=== PATIENT | male | born 1930 | race African-American/Black ===

== ENCOUNTER 2017-09-25 20:52 | Observation (INO) | payer OTHER ==
--- NOTE | 2017-09-25 20:55 | PDOC ---
History of Present Illness - General Stated Complaint: CHEST PAIN Time Seen by Provider: 09/25/17 20:54 - History of Present Illness Initial Comments: 09/25/17 21:21 The patient is an 87 year old male with a history of HTN, HLD, ME who presents for evaluation of chest pain from [facility]. The patient reports a history of sharp left sided chest pain beginning 6 days ago. He states that the pain began radiating into his left arm earlier today prompting his presentation to the ED for evaluation. The patient received 3 SL nitro at the [facility] with some mild improvement in his pain and a 4th SL nitro en route to the ED. The patient notes that his current pain feels different from his prior MIs and notes that it is worse with inspiration and palpation. He otherwise denies fevers, chills, cough, SOB, nausea, vomiting, abdominal pain, or changes with urination or bowel movements. Past History - Past Medical History Allergies/Adverse Reactions: Allergies Allergy/AdvReac Type Severity Reaction Status Date / Time Penicillins Allergy Verified 09/25/17 21:12 Home Medications: Ambulatory Orders Amlodipine Besylate 10 mg PO DAILY 09/25/17 Aspirin [ASA -] 81 mg PO DAILY 09/25/17 Cholecalciferol (Vitamin D3) [Vitamin D3] 5,000 unit PO DAILY 09/25/17 Cinnamon Bark [Cinnamon] 500 mg PO DAILY 09/25/17 Clopidogrel Bisulfate [Clopidogrel] 75 mg PO DAILY 09/25/17 Dorzolamide/Timolol/Pf [Cosopt Pf Eye Drops] 1 each OP TID 09/25/17 Latanoprost 0.005% Eye Drops [Xalatan 0.005% Eye Drops -] 1 drop OP HS 09/25/17 Loteprednol Etabonate [Lotemax] 5 gm OP Q2D 09/25/17 Metoprolol Succinate [Toprol Xl] 25 mg PO DAILY 09/25/17 Multivit with Minerals No.55 [Centrum Flavor Burst Adult] 1 each PO DAILY [place]-3 Fatty Acids/Fish Oil [Fish Oil 1,000 mg Capsule] 1 each PO DAILY Phenazopyridine HCl [Pyridium] 200 mg PO BID 09/25/17 Prednisolone 1% Ophthalmic [Pred Forte 1% -] 1 drop OP DAILY 09/25/17 Rosuvastatin Calcium [Crestor] 40 mg PO HS 09/25/17 Valacyclovir HCl [Valtrex -] 500 mg PO DAILY 09/25/17 Vit B12/Intrinsic Fact/Folate [Intrinsi M22-[id number] Tablet] 1 each PO DAILY 09/25 Review of Systems - Review of Systems Comments:: 09/25/17 21:24 Constitutional: No fevers, chills, fatigue, malaise HEENT: No Rhinorrhea, nasal congestion, visual changes Cardiovascular: Chest pain. No syncope, palpitations, lightheadedness Respiratory: No Cough, Hemoptysis, Gastrointestinal: No Abdominal pain, Nausea, Vomiting, Constipation, Diarrhea, Melena Genitourinary: No Dysuria, Frequency, Urgency, Hesitancy, Hematuria, Flank pain Musculoskeletal: No Myalgia, arthralgia Skin: No rashes, itching, bruising, pallor Neurologic: No Headache, Dizziness, Numbness, Weakness, or Tingling Psychiatric: No Hallucinations. No SI or HI *Physical Exam - Physical Exam Comments: 09/25/17 21:25 General Appearance: Nourished. No Apparent Distress HEENT: EOMI, EVA. No Pharyngeal Erythema, Tonsillar Exudate, Tonsillar Erythema Neck: No Cervical Lymphadenopathy Respiratory/Chest: Lungs Clear, Normal Breath Sounds. Reproducible tenderness to palpation along the left lateral chest wall. No Crackles, Rales, Rhonchi, Wheezing Cardiovascular: Regular Rhythm, Regular Rate. 2/6 Systolic murmur noted on exam. No Gallops, Rubs Gastrointestinal/Abdominal: Normal Bowel Sounds, Soft. No Guarding, Rebound, Tenderness Musculoskeletal: No CVA Tenderness Extremity: 2+ pitting edema in the lower extremities bilaterally. Normal Capillary Refill Integumentary: Normal Color, Dry, Warm Neurologic: Fully Oriented, Alert, Normal Mood/Affect, Normal Response, Heart Score/ECG Review #1 ECG reviewed & interpreted by me at: 23:17 (Right bundle branch block with Left anterior fascicular block) General ECG Interpretation: Sinus Rhythm, Normal Rate, No acute ischemic changes ED Treatment Course - LABORATORY CBC & Chemistry Diagram: 09/25/17 22:13 09/25/17 22:13 Medical Decision Making - Medical Decision Making 09/25/17 21:26 The patient is an 87 year old male with a history of HTN, HLD, ME who presents for evaluation of chest pain from [facility]. Differential includes but is not limited to: ACS, Pneumonia, musculoskeletal, infectious, metabolic derangement. Given the patient's cardiac history and physical exam, we will obtain a cbc, cmp, bnp, troponin, ekg, and chest plain film to evaluate further for possible etiologies of the patient's pain. We will continue to monitor and reassess in the meantime. 09/25/17 23:12 CBC demonstrates a pancytopenia. CMP, bnp, troponin are unremarkable. The patient will require admission for further management and monitoring. We discussed the case with the hospitalist team who accepted the patient for admission. *DC/Admit/Observation/Transfer Diagnosis at time of Disposition: Pancytopenia Chest pain Qualifiers: Chest pain type: unspecified Qualified Code(s): R07.9 - Chest pain, unspecified - Discharge Dispostion Condition at time of disposition: Stable Admit: Yes - Referrals - Patient Instructions - Post Discharge Activity
[2017-09-25 21:14] VITALS: BMI 30.4
[2017-09-25 22:38] LABS: BASO % 0.6 % (0-2.0); EOS % 2.7 % (0-4.5); HEMATOCRIT 28.9 % (35.4-49); HEMOGLOBIN 9.6 GM/dL (11.7-16.9); MCH 31.9 pg (25.7-33.7); MCHC 33.1 g/dl (32.0-35.9); MEAN CELL VOLUME 96.4 fl (80-96); NEUT % 55.7 % (42.8-82.8); RBC 2.99 M/mm3 (4.00-5.60); RDW 15.2 % (11.9-15.9)
[2017-09-25 22:50] LABS: ALBUMIN 3.4 g/dl (3.4-5.0); ANION GAP 6 (8-16); BILIRUBIN,TOTAL 0.3 mg/dL (0.2-1.0); BLOOD UREA NITROGEN 19 mg/dL (7-18); CALCIUM 7.9 mg/dL (8.5-10.1); CHLORIDE 106 mmol/L (98-107); CO2 27 mmol/L (21-32); CREATININE 1.2 mg/dL (0.7-1.3); GLUCOSE,RANDOM 144 mg/dL (74-106); PLATELET COUNT 33 K/MM3 (134-434); POTASSIUM 3.8 mmol/L (3.5-5.1); SGOT/AST 11 U/L (15-37); SGPT/ALT 13 U/L (12-78); SODIUM 139 mmol/L (136-145); TOT PROT 6.4 g/dl (6.4-8.2)
[2017-09-25 22:52] LABS: ALK PHOS 91 U/L (45-117)
[2017-09-25] MEDS ORDERED: MORPHINE SULFATE 10 MG/1 ML *VIAL IVPUSH PRN (23:13)
[2017-09-25 23:14] LABS: WHITE BLOOD COUNT 3.2 K/mm3 (4.0-10.0)
--- NOTE | 2017-09-25 23:24 | HP ---
CHIEF COMPLAINT: Chest pain. PCP: Dr. Macrina Pineda HISTORY OF PRESENT ILLNESS: 87 yo M with significant PMHx of HTN, HLD, and CAD (s/p ME x2) presents with 6 day history of chest pain from [facility]. He describes constant sharp left sided chest pain that radiates down left arm. Pain is worse with deep inspiration and with palpation. He endorses diaphoresis one night prior. Pain not associated with activity or nausea. He received SL nitro x3 at [facility] and one in ambulance with minimal pain relief. He states that pain is not similar to prior ME. Last ME was 5 yrs ago and he underwent cardiac cath but not stents. Unsure of last echo or stress test but is following by inspector material disposition. Denies BUSTOS, SOB, abdominal pain, recent illness fever or chills. ER course was notable for: (1)Troponin I (-) x1 (2)CXR shows no acute pathology (3) Recent Travel: Denies PAST MEDICAL HISTORY:HTN, HLD, and CAD PAST SURGICAL HISTORY: right knee replacement, tonsillectomy, removal of scalp mass. Social History: Smoking: former smoker quit in Alcohol: Denies Drugs: Denies Family History: Allergies Penicillins Allergy (Verified 09/25/17 21:12) HOME MEDICATIONS: Home Medications Medication Instructions Recorded Amlodipine Besylate 10 mg PO DAILY 09/25/17 Aspirin [ASA -] 81 mg PO DAILY 09/25/17 Cholecalciferol (Vitamin D3) 5,000 unit PO DAILY 09/25/17 [Vitamin D3] Cinnamon Bark [Cinnamon] 500 mg PO DAILY 09/25/17 Clopidogrel Bisulfate [Clopidogrel] 75 mg PO DAILY 09/25/17 Dorzolamide/Timolol/Pf [Cosopt Pf 1 each OP TID 09/25/17 Eye Drops] Latanoprost 0.005% Eye Drops 1 drop OP HS 09/25/17 [Xalatan 0.005% Eye Drops -] Loteprednol Etabonate [Lotemax] 5 gm OP Q2D 09/25/17 Metoprolol Succinate [Toprol Xl] 25 mg PO DAILY 09/25/17 Multivit with Minerals No.55 1 each PO DAILY 09/25/17 [Centrum Flavor Burst Adult] [place]-3 Fatty Acids/Fish Oil [Fish 1 each PO DAILY 09/25/17 Oil 1,000 mg Capsule] Phenazopyridine HCl [Pyridium] 200 mg PO BID 09/25/17 Prednisolone 1% Ophthalmic [Pred 1 drop OP DAILY 09/25/17 Forte 1% -] Rosuvastatin Calcium [Crestor] 40 mg PO HS 09/25/17 Valacyclovir HCl [Valtrex -] 500 mg PO DAILY 09/25/17 Vit B12/Intrinsic Fact/Folate 1 each PO DAILY 09/25/17 [Intrinsi W68-Mhuyef Tablet] REVIEW OF SYSTEMS CONSTITUTIONAL: Absent: fever, chills, diaphoresis, generalized weakness, malaise, loss of appetite, weight change HEENT: Absent: rhinorrhea, nasal congestion, throat pain, throat swelling, difficulty swallowing, mouth swelling, ear pain, eye pain, visual changes CARDIOVASCULAR: + chest pain Absent: , syncope, palpitations, irregular heart rate, lightheadedness, peripheral edema RESPIRATORY: Absent: cough, shortness of breath, dyspnea with exertion, orthopnea, wheezing, stridor, hemoptysis GASTROINTESTINAL: Absent: abdominal pain, abdominal distension, nausea, vomiting, diarrhea, constipation, melena, hematochezia GENITOURINARY: Absent: dysuria, frequency, urgency, hesitancy, hematuria, flank pain, genital pain MUSCULOSKELETAL: Absent: myalgia, arthralgia, joint swelling, back pain, neck pain SKIN: Absent: rash, itching, pallor HEMATOLOGIC/IMMUNOLOGIC: Absent: easy bleeding, easy bruising, lymphadenopathy, frequent infections ENDOCRINE: Absent: unexplained weight gain, unexplained weight loss, heat intolerance, cold intolerance NEUROLOGIC: Absent: headache, focal weakness or paresthesias, dizziness, unsteady gait, seizure, mental status changes, bladder or bowel incontinence PSYCHIATRIC: Absent: anxiety, depression, suicidal or homicidal ideation, hallucinations. PHYSICAL EXAMINATION Vital Signs - 24 hr 09/25/17 21:12 Temperature 97.6 F Pulse Rate 67 Respiratory 14 Rate Blood Pressure 105/54 GENERAL: Awake and alert, NAD HEAD:NC/AT EYES:legally blind. Pupils dilated and unreactive. EARS, NOSE, THROAT:dry mucous membranes. NECK: supple, No jvd LUNGS: CTAB, No wheezing or rales. HEART: RRR, S1S2 NL, 2/6 YOVANI ABDOMEN: Soft, NT/ND, NL BS, no guarding, no rebound, no masses. MUSCULOSKELETAL: tenderness to palpation of left chest wall mid axillary line. UPPER EXTREMITIES: 2+ pulses, warm, well-perfused. No cyanosis. No clubbing. No peripheral edema. LOWER EXTREMITIES: 2+ pulses, warm, well-perfused. No calf tenderness. 1 + pitting edema up to knees bilaterally. NEUROLOGICAL: Normal speech. PSYCHIATRIC: Cooperative. Appropriate mood and affect. SKIN: Warm, dry, normal turgor, no rashes or lesions noted, normal capillary refill. Laboratory Results - last 24 hr 09/25/17 09/25/17 09/25/17 22:13 22:13 22:13 WBC 3.2 L RBC 2.99 L Hgb 9.6 L Hct 28.9 L MCV 96.4 H MCH 31.9 MCHC 33.1 RDW 15.2 Plt Count 33 L* MPV 11.0 Neutrophils % 55.7 Lymphocytes % 35.0 Monocytes % 6.0 Eosinophils % 2.7 Basophils % 0.6 Sodium 139 Potassium 3.8 Chloride 106 Carbon Dioxide 27 Anion Gap 6 L BUN 19 H Creatinine 1.2 Creat Clearance w eGFR 57.27 Random Glucose 144 H Calcium 7.9 L Total Bilirubin 0.3 AST 11 L ALT 13 Alkaline Phosphatase 91 Creatine Kinase 54 Troponin I < 0.02 B-Natriuretic Peptide 289.19 Total Protein 6.4 Albumin 3.4 ASSESSMENT/PLAN: 87 yo M with significant PMHx of CAD, HTN, HLD placed on telemetry observation to r/o ACS. Problem List - Problem (1) Chest pain Assessment/Plan: R/O ACS, however atypical presentation most likely MS * Place on observation. * Telemetry * Trend trops Q6H * EKG in AM * Cardio Consult Dr. Yoon. * lipid panel * Morphine 1 mg Q4H for pain 6-10 * SL NITRO PRN * CXR pending. * ECHO to assess for WMA. (2) Pancytopenia Assessment/Plan: unclear etiology. * Lab reports clots. * repeat CBC WNL * Will restart ASA and plavix. (3) DVT prophylaxis Assessment/Plan: SCD's bilaterally Visit type - Emergency Visit Emergency Visit: Yes ED Registration Date: 09/25/17 Care time: The patient presented to the Emergency Department on the above date and was hospitalized for further evaluation of their emergent condition. - New Patient This patient is new to me today: Yes Date on this admission: 09/26/17 - Critical Care Critical Care patient: No Hospitalist Screening - Colonoscopy Questionnaire Colonoscopy Questionnaire: Colonoscopy Questionnaire - Patient: 50 - 75 years old and never had a screening colonoscopy: No History of colon or rectal polyps, or CA: No History of IBD, Crohn's disease or UC: No History of abdominal radiation therapy as a child: No - Relative: 1 with colon or rectal CA, or polyps at age 60 or younger: No Colon or rectal CA diagnosed at age 45 or younger: No Multiple relatives with colon or rectal CA: No - Outcome: Screening Result: Negative Screen
--- NOTE | 2017-09-26 00:33 | PDOC ---
Attending Attestation - Resident Resident Name: HuongXiang - ED Attending Attestation I have performed the following: I have examined & evaluated the patient, The case was reviewed & discussed with the resident, I agree w/resident's findings & plan, Exceptions are as noted - HPI HPI: 09/26/17 00:32 87 yo male BIBA from [facility] for chest pain. 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
--- NOTE | 2017-09-26 00:52 | PN ---
Teaching Attending Note Name of Resident: Franco Houser ATTENDING PHYSICIAN STATEMENT I saw and evaluated the patient. I reviewed the resident's note and discussed the case with the resident. I agree with the resident's findings and plan as documented. SUBJECTIVE: 87 F with pmhx. of HTN, HLD, Past RI 5 years ago, in which stents could not be placed, who presents with chest pain earlier today. States Chest pain started while he was in therapy and is pain on left side of chest. States it causes him pain to take deep breath. No diaphoresis, no fevers or chills. No chest pressure. States his left chest feels sore. No N, V,D. 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 Quit Smoking in 1960s. Fam Hx: Father passed RI OBJECTIVE: Physical: VS: Vital Signs Period Temp Pulse Resp BP Sys/Yeung Pulse Ox Last 24 Hr 97.6 F 67 14 105/54 GEN: NAD, Resting in bed, AA0x3 HEENT: NCAT, PERRL, Throat without erythema or exudates CARD: RRR S1, S2 RESP: CTAB ABD: BSx4, NTD to palpation EXT: - C/C/E CBCD WBC 3.2 K/mm3 (4.0-10.0) L 09/25/17 22:13 RBC 2.99 M/mm3 (4.00-5.60) L 09/25/17 22:13 Hgb 9.6 GM/dL (11.7-16.9) L 09/25/17 22:13 Hct 28.9 % (35.4-49) L 09/25/17 22:13 MCV 96.4 fl (80-96) H 09/25/17 22:13 MCHC 33.1 g/dl (32.0-35.9) 09/25/17 22:13 RDW 15.2 % (11.9-15.9) 09/25/17 22:13 Plt Count 33 K/MM3 (134-434) L* 09/25/17 22:13 MPV 11.0 fl (7.5-11.1) 09/25/17 22:13 CMP Sodium 139 mmol/L (136-145) 09/25/17 22:13 Potassium 3.8 mmol/L (3.5-5.1) 09/25/17 22:13 Chloride 106 mmol/L (98-107) 09/25/17 22:13 Carbon Dioxide 27 mmol/L (21-32) 09/25/17 22:13 Anion Gap 6 (8-16) L 09/25/17 22:13 BUN 19 mg/dL (7-18) H 09/25/17 22:13 Creatinine 1.2 mg/dL (0.7-1.3) 09/25/17 22:13 Creat Clearance w eGFR 57.27 (>60) 09/25/17 22:13 Random Glucose 144 mg/dL (74-106) H 09/25/17 22:13 Calcium 7.9 mg/dL (8.5-10.1) L 09/25/17 22:13 Total Bilirubin 0.3 mg/dL (0.2-1.0) 09/25/17 22:13 AST 11 U/L (15-37) L 09/25/17 22:13 ALT 13 U/L (12-78) 09/25/17 22:13 Alkaline Phosphatase 91 U/L (45-117) 09/25/17 22:13 Total Protein 6.4 g/dl (6.4-8.2) 09/25/17 22:13 Albumin 3.4 g/dl (3.4-5.0) 09/25/17 22:13 CARDIAC ENZYMES Creatine Kinase 54 IU/L (39-308) 09/25/17 22:13 Troponin I < 0.02 ng/ml (0.00-0.05) 09/25/17 22:13 EKG: RBBB, Bifasicular block QtC 490 PVC CXR: PENDING Ambulatory Orders Amlodipine Besylate 10 mg PO DAILY 09/25/17 Aspirin [ASA -] 81 mg PO DAILY 09/25/17 Cholecalciferol (Vitamin D3) [Vitamin D3] 5,000 unit PO DAILY 09/25/17 Cinnamon Bark [Cinnamon] 500 mg PO DAILY 09/25/17 Clopidogrel Bisulfate [Clopidogrel] 75 mg PO DAILY 09/25/17 Dorzolamide/Timolol/Pf [Cosopt Pf Eye Drops] 1 each OP TID 09/25/17 Latanoprost 0.005% Eye Drops [Xalatan 0.005% Eye Drops -] 1 drop OP HS 09/25/17 Loteprednol Etabonate [Lotemax] 5 gm OP Q2D 09/25/17 Metoprolol Succinate [Toprol Xl] 25 mg PO DAILY 09/25/17 Multivit with Minerals No.55 [Centrum Flavor Burst Adult] 1 each PO DAILY [place]-3 Fatty Acids/Fish Oil [Fish Oil 1,000 mg Capsule] 1 each PO DAILY Phenazopyridine HCl [Pyridium] 200 mg PO BID 09/25/17 Prednisolone 1% Ophthalmic [Pred Forte 1% -] 1 drop OP DAILY 09/25/17 Rosuvastatin Calcium [Crestor] 40 mg PO HS 09/25/17 Valacyclovir HCl [Valtrex -] 500 mg PO DAILY 09/25/17 Vit B12/Intrinsic Fact/Folate [Intrinsi Y85-Hacmwq Tablet] 1 each PO DAILY 09/25 ASSESSMENT AND PLAN: 87 F with pmhx. of HTN, HLD, Past RI 5 years ago, in which stents could not be placed, who presents with chest pain 1.) Chest Pain - Atypical - HEART 6 - Trend Trop/Ekg - ECHO - Most likley musculoskeltal - NEEDS REPEAT CBC - Low plts - Morphine prn pain - 02 - BP borderline would hold BB - FU CXR 2.) Pancytopenia - STAT CBC REPEAT - HEME consult if counts true - Hold ASA/Plavix 3.) LISA - Gentle IVF 4.) HLD - Check lipid panel 5.) Dvt Ppx - SCDS Place in OBs-Tele
[2017-09-26 03:55] LABS: BASO % 0.7 % (0-2.0); EOS % 3.4 % (0-4.5); HEMATOCRIT 27.6 % (35.4-49); HEMOGLOBIN 9.3 GM/dL (11.7-16.9); LYMPH % 28.6 % (8-40); MCH 32.2 pg (25.7-33.7); MCHC 33.5 g/dl (32.0-35.9); MEAN PLT VOLUME 9.5 fl (7.5-11.1); MONO % 8.8 % (3.8-10.2); NEUT % 58.5 % (42.8-82.8); PLATELET COUNT 162 K/MM3 (134-434); RBC 2.88 M/mm3 (4.00-5.60); RDW 15.1 % (11.9-15.9)
[2017-09-26 07:00] LABS: URINE APPEARANCE SLCLOUDY; URINE BILIRUBIN NEGATIVE (NEGATIVE); URINE BLOOD 2+ (NEGATIVE); URINE COLOR AMBER; URINE GLUCOSE (UA) NEGATIVE (NEGATIVE); URINE KETONE NEGATIVE (NEGATIVE); URINE NITRITE POSITIVE (NEGATIVE); URINE UROBILINOGEN 4.0 E.U/dl mg/dL (0.2-1.0)
[2017-09-26 07:09] LABS: URINE LEUK ESTERASE 2+ (NEGATIVE); URINE PROTEIN 2+ (NEGATIVE)
[2017-09-26 07:11] LABS: EPI CELLS RARE /HPF (FEW); URINE BACTERIA MANY /hpf (NONE SEEN); URINE MUCUS RARE
[2017-09-26 07:53] LABS: BASO % 0.7 % (0-2.0); EOS % 2.6 % (0-4.5); HEMATOCRIT 28.2 % (35.4-49); HEMOGLOBIN 9.6 GM/dL (11.7-16.9); MCH 32.6 pg (25.7-33.7); MEAN PLT VOLUME 9.1 fl (7.5-11.1); MONO % 8.6 % (3.8-10.2); NEUT % 62.1 % (42.8-82.8); PLATELET COUNT 160 K/MM3 (134-434); RBC 2.93 M/mm3 (4.00-5.60); RDW 15.4 % (11.9-15.9); WHITE BLOOD COUNT 4.5 K/mm3 (4.0-10.0)
[2017-09-26 08:21] LABS: ALBUMIN 3.4 g/dl (3.4-5.0); ANION GAP 12 (8-16); BLOOD UREA NITROGEN 19 mg/dL (7-18); CALCIUM 8.5 mg/dL (8.5-10.1); CHLORIDE 106 mmol/L (98-107); CO2 23 mmol/L (21-32); CREATININE 1.1 mg/dL (0.7-1.3); GLUCOSE,RANDOM 98 mg/dL (74-106); PHOSPHOROUS 3.3 mg/dL (2.5-4.9); SGPT/ALT 12 U/L (12-78); SODIUM 141 mmol/L (136-145)
[2017-09-26 08:23] LABS: ALK PHOS 76 U/L (45-117); BILIRUBIN,TOTAL 0.6 mg/dL (0.2-1.0); TOT PROT 6.4 g/dl (6.4-8.2)
[2017-09-26 08:26] LABS: MAGNESIUM 2.2 mg/dL (1.8-2.4); POTASSIUM 4.1 mmol/L (3.5-5.1); SGOT/AST 17 U/L (15-37)
[2017-09-26] MEDS ORDERED: LOTEPREDNOL ETABONATE 5 GM OP SCH (10:00)
[2017-09-26] MEDS: amLODIPine BESYLATE 10 MG TABLET (FP) PO SCH (10:19)
[2017-09-26] MEDS: ASPIRIN 81 MG CHEWABLE TABLETS PO SCH (10:19)
[2017-09-26] MEDS: CLOPIDOGREL BISULFATE 75 MG TABLET (FP) PO SCH (10:19)
[2017-09-26] MEDS: prednisoLONE ACETATE 1% OPHTH SUSP 5 ML BOTTLE OU SCH (10:20)
[2017-09-26] MEDS: metoPROLOL SUCCINATE 25 MG TAB.SR.24H (FP) PO SCH (10:20)
--- NOTE | 2017-09-26 10:47 | PN ---
Progress Note, Physician Chief Complaint: c/o chest pain with movement cough+ events noted - Current Medication List Current Medications: Active Medications Amlodipine Besylate (Norvasc -) 10 mg PO DAILY [facility] Last Admin: 09/26/17 10:19 Dose: 10 mg Aspirin (Asa -) 81 mg PO DAILY [facility] Last Admin: 09/26/17 10:19 Dose: 81 mg Clopidogrel Bisulfate (Plavix -) 75 mg PO DAILY [facility] Last Admin: 09/26/17 10:19 Dose: 75 mg Latanoprost (Xalatan 0.005% Eye Drops -) 1 drop OU [facility] Metoprolol Succinate (Toprol Xl -) 25 mg PO DAILY [facility] Last Admin: 09/26/17 10:20 Dose: 25 mg Morphine Sulfate (Morphine Injection -) 1 mg IVPUSH Q4H PRN PRN Reason: PAIN LEVEL 6-10 Non-Formulary Medication (Loteprednol Etabonate [Lotemax]) 5 gm OP Q2D [facility] Prednisolone Acetate (Pred Forte 1% -) 1 drop OU DAILY [facility] Last Admin: 09/26/17 10:20 Dose: 1 drop Rosuvastatin Calcium (Crestor -) 40 mg PO [facility] - Objective Vital Signs: Vital Signs Temperature 98.0 F 09/26/17 08:59 Pulse Rate 59 L 09/26/17 08:59 Respiratory Rate 16 09/26/17 08:59 Blood Pressure 110/69 09/26/17 08:59 O2 Sat by Pulse Oximetry (%) 95 09/26/17 08:59 Constitutional: Yes: No Distress Cardiovascular: Yes: Pulse Irregular Respiratory: Yes: Diminished Gastrointestinal: Yes: Normal Bowel Sounds, Soft. No: Tenderness Edema: No Labs: CBC, BMP 09/26/17 07:37 09/26/17 07:37 Problem List - Problems (1) Chest pain Code(s): R07.9 - CHEST PAIN, UNSPECIFIED Qualifiers: Chest pain type: chest pain on breathing Qualified Code(s): R07.1 - Chest pain on breathing; R07.81 - Pleurodynia (2) CKD (chronic kidney disease) Code(s): N18.9 - CHRONIC KIDNEY DISEASE, UNSPECIFIED (3) Afib Code(s): I48.91 - UNSPECIFIED ATRIAL FIBRILLATION (4) HTN (hypertension) Code(s): I10 - ESSENTIAL (PRIMARY) HYPERTENSION Assessment/Plan PLAN Check cardiac enzymes Cardiology eval ASA and Plavix to continue CT chest start antibiotics urine antigens Telemetry rate control
--- NOTE | 2017-09-26 15:51 | CON.CARD ---
Consult Consult Specialty:: cardio - History of Present Illness Chief Complaint: cp History of Present Illness: 87 yo male here with CP. pt has prior CAD history. sees dr diana eisenberg (last saw him 2 mo ago--all stable then) home med regimen: rosuva 40mg, aspirin 81, plavix, metopr 25mg, amlodipine 10, fish oils 1000mg qd states he is having L axillary/lateral chest pain, lower chest near lower rib margin, constant all day today. has not resolved. worse with breathing deep or coughing, ALSO WORSE WITH MOTION OF TORSO. CHILLS WITH SOAKING SWEATS YESTERDAY. cough began yesterday, with phlegm (blind--? color) no sore throat, rhinitis admits to sob, including orthopnea--? how long ("i've been having that for some time"). legs swelling, ? unchanged he says denies h/o pericarditis, chf trop neg x 2 here. PMH (per [place] list): afib CKD angina GERD RA - Alcohol/Substance Use Hx Alcohol Use: No - Smoking History Smoking history: Never smoked Have you smoked in the past 12 months: No Home Medications - Allergies Allergies/Adverse Reactions: Allergies Allergy/AdvReac Type Severity Reaction Status Date / Time Penicillins Allergy Verified 09/25/17 21:12 - Home Medications Home Medications: Ambulatory Orders Amlodipine Besylate 10 mg PO DAILY 09/25/17 Aspirin [ASA -] 81 mg PO DAILY 09/25/17 Cholecalciferol (Vitamin D3) [Vitamin D3] 5,000 unit PO DAILY 09/25/17 Cinnamon Bark [Cinnamon] 500 mg PO DAILY 09/25/17 Clopidogrel Bisulfate [Clopidogrel] 75 mg PO DAILY 09/25/17 Dorzolamide/Timolol/Pf [Cosopt Pf Eye Drops] 1 each OU TID 09/25/17 Latanoprost 0.005% Eye Drops [Xalatan 0.005% Eye Drops -] 1 drop OU HS 09/25/17 Loteprednol Etabonate [Lotemax] 5 gm OP Q2D 09/25/17 Metoprolol Succinate [Toprol Xl] 25 mg PO DAILY 09/25/17 Multivit with Minerals No.55 [Centrum Flavor Burst Adult] 1 each PO DAILY [place]-3 Fatty Acids/Fish Oil [Fish Oil 1,000 mg Capsule] 1 each PO DAILY Phenazopyridine HCl [Pyridium] 200 mg PO BID 09/25/17 Prednisolone 1% Ophthalmic [Pred Forte 1% -] 1 drop OS DAILY 09/25/17 Rosuvastatin Calcium [Crestor] 40 mg PO HS 09/25/17 Valacyclovir HCl [Valtrex -] 500 mg PO DAILY 09/25/17 Brinzolamide [Azopt] 1 drop OU TID 09/26/17 Cyanocobalamin [Vitamin B12 -] 1,000 mcg PO DAILY 09/26/17 Ketorolac Tromethamine [Acular] 1 drop OU BID 09/26/17 Review of Systems - Review of Systems Constitutional: reports: Chills. denies: Fever Eyes: denies: Eye Pain HENT: denies: Nasal Congestion Neck: denies: Stiffness Cardiovascular: denies: Palpitations Respiratory: denies: Orthopnea, PND Gastrointestinal: denies: Diarrhea, Rectal Bleeding Genitourinary: denies: Burning, Hematuria Musculoskeletal: denies: Muscle Pain Integumentary: denies: Rash Neurological: denies: Numbness, Seizure, Syncope Endocrine: denies: Excessive Sweating Hematology/Lymphatic: denies: Excessive Bleeding Vital Signs: Vital Signs Temperature 98 F 09/26/17 14:30 Pulse Rate 105 H 09/26/17 14:30 Respiratory Rate 20 09/26/17 14:30 Blood Pressure 126/68 09/26/17 14:30 O2 Sat by Pulse Oximetry (%) 98 09/26/17 12:11 Constitutional: Yes: Well Nourished, No Distress Eyes: No: Sclera Icterus HENT: No: Nasal Congestion Neck: No: Decreased ROM Respiratory: Yes: CTA Bilaterally. No: Accessory Muscle Use, Rales, Wheezes Gastrointestinal: Yes: Normal Bowel Sounds. No: Distention, Hepatomegaly, Palpable Mass, Tenderness Cardiovascular: Yes: Regular Rate and Rhythm JVD: No Carotid Bruit: No PMI: Non-Displaced Heart Sounds: Yes: S1, S2. No: Gallop, Rub Murmur: No: Systolic Murmur, Diastolic Murmur Musculoskeletal: Yes: Other (No kyphosis) Extremities: No: Cool, Cyanosis Edema: Yes (1+ ankles) Peripheral Pulses: 2+ Left Carotid, 2+ Right Carotid, 2+ Left Doralis Pedis, 2+ Right Dorsalis Pedis Integumentary: No: Jaundice Neurological: Yes: Alert, Oriented (x3) Psychiatric: No: Agitated - Other Data Labs, Other Data: CBC, BMP 09/26/17 07:37 09/26/17 07:37 Troponin, BNP 09/25/17 09/25/17 09/26/17 22:13 22:13 03:43 Troponin I < 0.02 0.02 B-Natriuretic Peptide 289.19 Troponin, BNP 09/25/17 09/25/17 09/26/17 22:13 22:13 03:43 Troponin I < 0.02 0.02 B-Natriuretic Peptide 289.19 Laboratory Tests 09/25/17 09/25/17 09/26/17 22:13 22:13 03:43 WBC Hgb Plt Count Sodium Potassium Carbon Dioxide BUN Creatinine AST ALT Troponin I < 0.02 0.02 B-Natriuretic Peptide 289.19 09/26/17 09/26/17 07:37 07:37 WBC 4.5 Hgb 9.6 L Plt Count 160 Sodium 141 Potassium 4.1 Carbon Dioxide 23 BUN 19 H Creatinine 1.1 AST 17 D ALT 12 Troponin I B-Natriuretic Peptide Assessment/Plan ECG 09/25 (21:47): NSR, IVCD (probably RBBB), LAFB, ? LVH. no path Q's. repol abnormalities V1-3 assctd with RBBB morphology of QRS. PVC. no old to compare. CXR: clear lungs/pleura, ? incr markings retrocardiac region chest pain, cough/chills, sob: -ECG abnormal, but without acute ischemic findings (no old) -trop neg x 2 -NOT CONCERNING FOR ACS, sx's atypical with strong mskel and pleuritic components--suspect sec to bronchitis/PNA, ? pleurisy component. -no rubs heard. -trial ibuprofren 600mg x 1 now--assess sx response -echo pending (? done earlier--report pending)--f/u effusion -at the moment, no signs of pericarditis -? abx, ? CT chest for retrocardiac infiltrate assessment--defer to pmd h/o CAD: -cont prior tx plan (home meds: aspirin, plavix, metoprolol, crestor (or equivalent statin) -f/u with outpt cardio h/o afib: -no details, dx listed in [place] sheets -not on AC--? assembling inspector is treating with asa/plavix instead. -f/u with cardio ([facility]) as outpt, as doing HTN: -bp controlled -cont home meds (amlodipine, metopr) LE edema: -? venous insy, ? amlodipine exacerbating -no other signs chf at present (examined sitting in WC in bathroom), BNP 200, CXR not congested -f/u echo anemia: -no baseline available -serial labs stable here -per pmd
[2017-09-26] MEDS ORDERED: IBUPROFEN 600 MG TABLET (FP) PO ONE (18:00)
[2017-09-26] MEDS ORDERED: PT OWN MED DRAWER 7, Y5N ONE (21:26)
[2017-09-26] MEDS ORDERED: LATANOPROST 0.005% OPHTH SOLN 2.5ML BOTTLE OU SCH (22:00)
[2017-09-26] MEDS ORDERED: ROSUVASTATIN CA 20 MG TABLET (FP) PO SCH (22:00)
--- NOTE | 2017-09-27 01:08 | EKG ---
Test Reason : Blood Pressure : / mmHG Vent. Rate : 070 BPM Atrial Rate : 070 BPM P-R Int : 208 ms QRS Dur : 174 ms QT Int : 454 ms P-R-T Axes : 013 -63 069 degrees QTc Int : 490 ms SINUS RHYTHM WITH OCCASIONAL PREMATURE VENTRICULAR COMPLEXES WITH 1ST DEGREE A-V BLOCK RIGHT BUNDLE BRANCH BLOCK LEFT ANTERIOR FASCICULAR BLOCK TRIFASCICULAR BLOCK MODERATE VOLTAGE CRITERIA FOR LVH, MAY BE NORMAL VARIANT CANNOT RULE OUT SEPTAL INFARCT , AGE UNDETERMINED ABNORMAL ECG NO PREVIOUS ECGS AVAILABLE Confirmed by MAGALIE CALVERT, TAB ([id number]) on 09/27/2017 1:07:37 AM Referred By: Confirmed By:TAB MEJIAS MD
[2017-09-27 06:32] VITALS: TEMP 98.1
[2017-09-27 08:56] LABS: CHOLESTEROL 90 mg/dL (50-200); TRIGLYCERIDES 76 mg/dL (35-160)
[2017-09-27] MEDS: ASPIRIN 81 MG CHEWABLE TABLETS PO SCH (09:05)
[2017-09-27] MEDS: amLODIPine BESYLATE 10 MG TABLET (FP) PO SCH (09:05)
[2017-09-27] MEDS: metoPROLOL SUCCINATE 25 MG TAB.SR.24H (FP) PO SCH (09:06)
[2017-09-27] MEDS: CLOPIDOGREL BISULFATE 75 MG TABLET (FP) PO SCH (09:06)
[2017-09-27] MEDS: prednisoLONE ACETATE 1% OPHTH SUSP 5 ML BOTTLE OU SCH (09:58)
--- NOTE | 2017-09-27 11:14 | PN ---
Progress Note, Physician Chief Complaint: see dc summary - Current Medication List Current Medications: Active Medications Amlodipine Besylate (Norvasc -) 10 mg PO DAILY [facility] Last Admin: 09/27/17 09:05 Dose: 10 mg Aspirin (Asa -) 81 mg PO DAILY [facility] Last Admin: 09/27/17 09:05 Dose: 81 mg Clopidogrel Bisulfate (Plavix -) 75 mg PO DAILY [facility] Last Admin: 09/27/17 09:06 Dose: 75 mg Levofloxacin (Levaquin 500 Mg Premixed Ivpb -) 500 mg in 100 mls @ 100 mls/hr IVPB DAILY [facility] Last Admin: 09/27/17 09:07 Dose: 100 mls/hr Latanoprost (Xalatan 0.005% Eye Drops -) 1 drop OU HS [facility] Last Admin: 09/26/17 21:38 Dose: 1 drop Metoprolol Succinate (Toprol Xl -) 25 mg PO DAILY [facility] Last Admin: 09/27/17 09:06 Dose: 25 mg Morphine Sulfate (Morphine Injection -) 1 mg IVPUSH Q4H PRN PRN Reason: PAIN LEVEL 6-10 Non-Formulary Medication (Loteprednol Etabonate [Lotemax]) 5 gm OP Q2D [facility] Prednisolone Acetate (Pred Forte 1% -) 1 drop OU DAILY [facility] Last Admin: 09/27/17 09:58 Dose: 1 drop Rosuvastatin Calcium (Crestor -) 40 mg PO HS [facility] Last Admin: 09/26/17 21:37 Dose: 40 mg - Objective Vital Signs: Vital Signs Temperature 98.1 F 09/27/17 05:00 Pulse Rate 75 09/27/17 05:00 Respiratory Rate 20 09/27/17 05:00 Blood Pressure 110/73 09/27/17 05:00 O2 Sat by Pulse Oximetry (%) 95 09/27/17 05:00 Labs: CBC, BMP 09/26/17 07:37 09/26/17 07:37 Problem List - Problems (1) Chest pain Code(s): R07.9 - CHEST PAIN, UNSPECIFIED Qualifiers: Chest pain type: chest pain on breathing Qualified Code(s): R07.1 - Chest pain on breathing; R07.81 - Pleurodynia (2) CKD (chronic kidney disease) Code(s): N18.9 - CHRONIC KIDNEY DISEASE, UNSPECIFIED (3) Afib Code(s): I48.91 - UNSPECIFIED ATRIAL FIBRILLATION (4) HTN (hypertension) Code(s): I10 - ESSENTIAL (PRIMARY) HYPERTENSION
--- NOTE | 2017-09-27 11:19 | PN ---
Progress Note (short form) - Note Progress Note: s: no palps dizzy; still with cough sob and cp when coughing o: Vital Signs Period Temp Pulse Resp BP Sys/Yeung Pulse Ox Last 24 Hr 97.6 F-98.4 F 71-105 16-20 110-152/63-73 95-98 Constitutional: Yes: Well Nourished, No Distress Eyes: No: Sclera Icterus Respiratory: Yes: CTA Bilaterally. No: Accessory Muscle Use, Rales, Wheezes Gastrointestinal: Yes: Normal Bowel Sounds. No: Distention, Hepatomegaly, Palpable Mass, Tenderness Cardiovascular: Yes: Regular Rate and Rhythm JVD: No Heart Sounds: Yes: S1, S2. No: Gallop, Rub Murmur: No: Systolic Murmur, Diastolic Murmur Extremities: No: Cool, Cyanosis Edema: Yes (1+ ankles) Integumentary: No: Jaundice Neurological: Yes: Alert, Oriented (x3) Psychiatric: No: Agitated Current Medications Generic Name Dose Route Start Last Admin Trade Name Freq PRN Reason Stop Dose Admin Amlodipine Besylate 10 mg 09/26/17 10:00 09/27/17 09:05 Norvasc - PO 10 mg DAILY [facility] Administration Aspirin 81 mg 09/26/17 10:00 09/27/17 09:05 Asa - PO 81 mg DAILY [facility] Administration Clopidogrel Bisulfate 75 mg 09/26/17 10:00 09/27/17 09:06 Plavix - PO 75 mg DAILY [facility] Administration Levofloxacin 500 mg in 100 mls @ 100 mls/hr 09/26/17 18:30 09/27/17 09:07 Levaquin 500 Mg Premixed Ivpb - IVPB 100 mls/hr DAILY [facility] Administration Latanoprost 1 drop 09/26/17 22:00 09/26/17 21:38 Xalatan 0.005% Eye Drops - OU 1 drop HS [facility] Administration Metoprolol Succinate 25 mg 09/26/17 10:00 09/27/17 09:06 Toprol Xl - PO 25 mg DAILY [facility] Administration Morphine Sulfate 1 mg 09/25/17 23:13 Morphine Injection - IVPUSH Q4H PRN PAIN LEVEL 6-10 Non-Formulary Medication 5 gm 09/26/17 10:00 Loteprednol Etabonate [Lotemax] OP Q2D [facility] Prednisolone Acetate 1 drop 09/26/17 10:00 09/27/17 09:58 Pred Forte 1% - OU 1 drop DAILY [facility] Administration Rosuvastatin Calcium 40 mg 09/26/17 22:00 09/26/17 21:37 Crestor - PO 40 mg HS [facility] Administration CBC, BMP 09/26/17 07:37 09/26/17 07:37 ECG 09/25 (21:47): NSR, IVCD (probably RBBB), LAFB, ? LVH. no path Q's. repol abnormalities V1-3 assctd with RBBB morphology of QRS. PVC. no old to compare. CXR: clear lungs/pleura, ? incr markings retrocardiac region echo 09/2017: low nl lvef, post AK, nl rv, no sig valve path tele: sr, occ pvcs ct chest: no sig lung abnl Assessment/Plan chest pain, cough/chills, sob: -ECG abnormal, but without acute ischemic findings (no old) -trop neg x 2 -NOT CONCERNING FOR ACS, sx's atypical with strong mskel and pleuritic components--suspect sec to bronchitis/PNA, ? pleurisy component. -no rubs heard. -echo shows no effusion -at the moment, no signs of pericarditis h/o CAD: -cont prior tx plan (home meds: aspirin, plavix, metoprolol, crestor (or equivalent statin) -preserved lvef -f/u with outpt cardio h/o afib: -no details, dx listed in [facility] sheets -not on AC--? 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 -[facility], as doing HTN: -bp controlled -cont home meds (amlodipine, metopr) LE edema: -? venous insy, ? amlodipine exacerbating -no other signs chf at present (examined sitting in WC in bathroom), BNP 200, CXR not congested -preserved lvef on echo anemia: -no baseline available -serial labs stable here -per pmd
--- NOTE | 2017-09-27 11:32 | DS ---
Physical Examination Vital Signs: Vital Signs Temperature 98.1 F 09/27/17 05:00 Pulse Rate 75 09/27/17 05:00 Respiratory Rate 20 09/27/17 05:00 Blood Pressure 110/73 09/27/17 05:00 O2 Sat by Pulse Oximetry (%) 95 09/27/17 05:00 Constitutional: Yes: No Distress, Calm Cardiovascular: Yes: Regular Rate and Rhythm Respiratory: Yes: CTA Bilaterally, Other (TENDER LEFT CHEST WALL) Gastrointestinal: Yes: Normal Bowel Sounds, Soft. No: Tenderness Edema: No Labs: CBC, BMP 09/26/17 07:37 09/26/17 07:37 Discharge Summary Reason For Visit: PANCYTOPENIA/CHEST PAIN Current Active Problems Afib (Acute) CKD (chronic kidney disease) (Acute) Chest pain (Acute) DVT prophylaxis (Acute) HTN (hypertension) (Acute) Hospital Course: ADMITTED FOR CHEST PAIN - SENT FROM [facility]- SEEN BY CARDILOGY- ECHO-- NORMAL EF, CT CHEST-- MINIMAL BIBSILAR ATELECTASIS CARDIAC ENZYMES NEGATIVE CHEST PAIN LIKELY MUSCULOSKELETAL , COSTOCHONDRITIS PT FOUND TO HAVE UTI- ON LEVAQUIN STABLE FOR DC TO [facility] PANCYTOPENIA ON ADMISSION IN ER IS LAB ERROR-- REPEAT IS NOT PANCYTOPENIA Condition: Stable - Instructions Disposition: LONGTERM FACILITY - Home Medications Comprehensive Discharge Medication List: Ambulatory Orders Amlodipine Besylate 10 mg PO DAILY 09/25/17 Aspirin [ASA -] 81 mg PO DAILY 09/25/17 Cholecalciferol (Vitamin D3) [Vitamin D3] 5,000 unit PO DAILY 09/25/17 Cinnamon Bark [Cinnamon] 500 mg PO DAILY 09/25/17 Clopidogrel Bisulfate [Clopidogrel] 75 mg PO DAILY 09/25/17 Dorzolamide/Timolol/Pf [Cosopt Pf Eye Drops] 1 each OU TID 09/25/17 Latanoprost 0.005% Eye Drops [Xalatan 0.005% Eye Drops -] 1 drop OU HS 09/25/17 Loteprednol Etabonate [Lotemax] 5 gm OP Q2D 09/25/17 Metoprolol Succinate [Toprol Xl] 25 mg PO DAILY 09/25/17 Multivit with Minerals No.55 [Centrum Flavor Burst Adult] 1 each PO DAILY [place]-3 Fatty Acids/Fish Oil [Fish Oil 1,000 mg Capsule] 1 each PO DAILY Phenazopyridine HCl [Pyridium] 200 mg PO BID 09/25/17 Prednisolone 1% Ophthalmic [Pred Forte 1% -] 1 drop OS DAILY 09/25/17 Rosuvastatin Calcium [Crestor] 40 mg PO HS 09/25/17 Valacyclovir HCl [Valtrex -] 500 mg PO DAILY 09/25/17 Brinzolamide [Azopt] 1 drop OU TID 09/26/17 Cyanocobalamin [Vitamin B12 -] 1,000 mcg PO DAILY 09/26/17 Ketorolac Tromethamine [Acular] 1 drop OU BID 09/26/17
[2017-09-27 12:36] LABS: HDL CHOLESTEROL 53 mg/dL (40-60); LDL CHOLESTEROL (ONLY SJRH) 34 mg/dL (5-100)
[2017-09-27 14:42] VITALS: BP 133/62; PULSE 67
== END 2017-09-27 14:19 ==
LOC: JER 20:52 → UNDOADMIN 23:11 → INTOOBSV 23:11 → JERBED 23:11 → UNDOADMOB 23:11 → JERBED 23:13 → UNDOADMIN 23:45 → J4S 09-26 14:14 → JERBED 09-26 14:14
PROVIDERS: ADMIT Internal Medicine; ATTEND Internal Medicine
DX: D61.818 Other pancytopenia (principal); R07.9 Chest pain, unspecified; I12.9 Hypertensive chronic kidney disease with stage 1 through stage 4 chronic kidney disease, or unspecified chronic kidney disease; I25.10 Atherosclerotic heart disease of native coronary artery without angina pectoris; I25.2 Old myocardial infarction; I48.91 Unspecified atrial fibrillation; N18.9 Chronic kidney disease, unspecified; N17.9 Acute kidney failure, unspecified; E78.5 Hyperlipidemia, unspecified; Z79.01 Long term (current) use of anticoagulants; Z79.82 Long term (current) use of aspirin; Z88.0 Allergy status to penicillin
CPT/HCPCS: 36415; 71045-TC-FY; 71250-TC; 80053; 80061; 81003; 81015; 82550; 83615; 83721; 83735; 83880; 84100; 84484; 85025; 85044; 93005; 93010; 93306-TC; 99285-25; G0378